=== PATIENT | male | born 1965 | race Caucasian/White ===

== ENCOUNTER 2017-12-05 06:30 | Day surgery (SDC) | payer BC ==
[~2017-12-05] VITALS: Ht 172.7 cm; Wt 77.6 kg
[~2017-12-05 06:30] MED LIST: CIALIS5 MG PO; IBUPROFEN200 MG PO
--- NOTE | 2017-12-05 08:02 | NUR ---
12/05/17 0802 Lauren Palm 5243-PATIENT ARRIVED TO PACU ON 3L NC O2 SAT 100% LAYING LEFT LATERAL. ABDOMEN SOFT. RR EVEN. DROWSY AROUSES TO VERBAL STIMULI
--- NOTE | 2017-12-05 10:40 | NUR ---
PT IN FOR FIRST SCOPE. SEEMED TO HANDLE SCOPE APPROPRIATELY, HAD FEW [facility], SURGERY STAFF IN TO TAKE PT. WILL FOLLOW NEEDED
--- NOTE | 2017-12-05 17:10 | OR ---
[facility] [address] [place], [place] [address] Signed DATE OF OPERATION: 12/05/2017 SURGEON: Iona Lindsay MD PREOPERATIVE DIAGNOSIS: Screening. POSTOPERATIVE DIAGNOSIS: Unremarkable colonoscopy. PROCEDURE PERFORMED: Colonoscopy without biopsy. ESTIMATED BLOOD LOSS: None. INDICATIONS: Lima is a 52-year-old gentleman, who was asked to see me for his initial screening colonoscopy. He has no lower GI complaints and there is no family history of colon cancer or polyps. I gave him a pamphlet in the office on colonoscopy and we looked at that together along with the risks including, but not limited to gas bloating, crampy abdominal pain, bleeding, perforation, requiring surgery, and missed diagnosis. We also discussed the need for IV conscious sedation. He had expressed understanding and wished to proceed. PROCEDURE NOTE: Lima was taken into our endoscopy suite and placed in the left lateral decubitus position. He was given 4 mg of Versed and 100 mcg of fentanyl to cover the case. A digital rectal exam was performed and he is getting some induration to his prostate and some swelling to it as well. After this the adult colonoscope was introduced and advanced all around into the cecum under direct visualization of camera without difficulty. Overall, his prep was good. He had a couple areas of liquid stool, most of which was suctioned out. The scope was slowly withdrawn. We had taken pictures throughout for photodocumentation. We saw no pathology throughout the entire colon or rectum. Upon retroflexion of the scope, there was no additional pathology noted above the anal canal. After this, the gas was suctioned out. The colonoscope removed. Lima tolerated the procedure quite well. RECOMMENDATIONS: Lima can follow up in 10 years for repeat colonoscopy. Electronically Signed By: IONA LINDSAY MD 12/05/17 0290 PATIENT NAME: LIMA MUNIZ OPERATIVE REPORT DATE OF : 65 REPORT #: [id number] PHYSICIAN: IONA LINDSAY MD PCP: NORA MOCTEZUMA REPORT IS CONFIDENTIAL AND NOT TO BE RELEASED WITHOUT AUTHORIZATION [address] [address] Signed MD ROHITH Hu/RAJIL /[id number] cc: VALORIE Vazquez MD Copies: NORA MOCTEZUMA ANDREW L MD ~ Electronically Signed By: IONA LINDSAY MD 12/05/17 1710 PATIENT NAME: LIMA MUNIZ OPERATIVE REPORT DATE OF : 65 REPORT #: [id number] PHYSICIAN: IONA LINDSAY MD PCP: NORA MOCTEZUMA REPORT IS CONFIDENTIAL AND NOT TO BE RELEASED WITHOUT AUTHORIZATION
== END 2017-12-05 08:50 | disposition home or self-care (01) ==
LOC: DS 06:30 → OPS 06:30 → DS 06:45 → OPS 06:45
PROVIDERS: Colon & Rectal Surgery
PROC: 0DJD8ZZ Inspection of Lower Intestinal Tract, Via Natural or Artificial Opening Endoscopic (ICD-10-PCS; principal; 2017-12-05 06:45)
DX: Z12.11 Encounter for screening for malignant neoplasm of colon (principal); J45.909 Unspecified asthma, uncomplicated; N52.9 Male erectile dysfunction, unspecified; F17.220 Nicotine dependence, chewing tobacco, uncomplicated
CPT/HCPCS: 99153; G0500; J2250; J3010; J7120